=== PATIENT | female | born 1970 | race Caucasian/White ===

== ENCOUNTER 2021-05-31 13:35 | Emergency (ER) | payer BC ==
[~2021-05-31] VITALS: Ht 152.4 cm; Wt 74.8 kg
[~2021-05-31 13:35] MED LIST: ACET1TAB25 PO; AMLO-258 PO; AMOX-429 PO; ONDA4TAB4 PO
[2021-05-31 13:37] VITALS: BP 144/75
[2021-05-31 14:44] VITALS: BP_SYST 138
[2021-05-31 14:45] VITALS: BP_SYST 139; BP_SYST 151; BP_DIAS 81; BP_DIAS 84
[2021-05-31 14:48] LABS: BASOPHILS % (AUTO) 1.1 % (0.0-5.0); EOSINOPHILS % (AUTO) 1.2 % (0.0-8.0); HEMATOCRIT 35.5 % (36-48); LYMPHOCYTES % (AUTO) 33.6 % (21.0-51.0); MEAN CORPUSCULAR HEMOGLOBIN 30.6 pg (27.0-33.0); MEAN CORPUSCULAR HGB CONC 34.6 g/dL (32.0-36.0); MEAN CORPUSCULAR VOLUME 88.3 fL (79-99); MONOCYTES % (AUTO) 5.5 % (3.0-13.0); NEUTROPHILS % (AUTO) 58.3 % (40.0-77.0); PLATELET COUNT (AUTO) 288 K/uL (130-400); RED BLOOD CELL COUNT(AUTO) 4.02 MIL/uL (4.00-5.50); RED CELL DISTRIBUTION WIDTH 11.9 % (11.0-15.5); WHITE BLOOD COUNT (AUTO) 7.4 K/uL (4.8-10.8)
[2021-05-31 15:00] VITALS: BP 118/72
[2021-05-31 15:01] LABS: CREATININE 0.7 mg/dL (0.5-1.5); POTASSIUM 3.7 mmol/L (3.5-5.1)
[2021-05-31 15:02] LABS: PROTHROMBIN TIME 10.9 SEC (9.6-11.6)
[2021-05-31 15:03] LABS: PARTIAL THROMBOPLASTIN TIME 25.1 SEC (26.3-35.5)
[2021-05-31 15:05] LABS: ALBUMIN 3.7 g/dL (3.5-5.0); BILIRUBIN,TOTAL 0.3 mg/dL (0.2-1.0); TOTAL PROTEIN, SERUM 7.7 g/dL (6.0-8.3)
[2021-05-31 15:18] LABS: APPEARANCE,URINE Clear (CLEAR); BILIRUBIN,URINE Negative (NEGATIVE); GLUCOSE, URINE (UA) Negative (NEGATIVE); KETONES,URINE Negative (NEGATIVE); LEUKOCYTE ESTERASE ,URINE Trace (NEGATIVE); NITRATE,URINE Negative (NEGATIVE); OCCULT BLOOD,URINE Large (NEGATIVE); PROTEIN,URINE Negative (NEGATIVE); UROBILINOGEN,URINE 0.2 mg/dL (0.2-1.0)
[2021-05-31 15:19] LABS: COLOR,URINE Pink (YELLOW)
[2021-05-31 15:20] LABS: HCG,QUAL RESULT NEGATIVE (NEGATIVE)
[2021-05-31 15:30] LABS: BACTERIA,URINE Rare /HPF (None Seen); MUCUS,URINE Few LPF (None Seen); SQUAMOUS EPITHELIAL CELL,UR 0-2 /HPF (0-2)
[2021-05-31 16:02] VITALS: BP 128/76
== END 2021-05-31 16:07 | disposition home or self-care (01) ==
LOC: EDH 13:35
DX: N93.8 Other specified abnormal uterine and vaginal bleeding (principal); I10 Essential (primary) hypertension; Z79.899 Other long term (current) drug therapy
CPT/HCPCS: 36415; 80053; 81001; 81025; 84703; 85025; 85610; 85730

== ENCOUNTER 2023-06-29 16:21 | Emergency (ER) | payer BC ==
[~2023-06-29] VITALS: Ht 152.4 cm; Wt 79.4 kg
[~2023-06-29 16:21] MED LIST changes: +ACET-2079 PO; -ACET1TAB25 PO
[2023-06-29] MEDS ORDERED: KETOROLAC 30MG VIAL (30MG/ML) IM ONE (17:30)
[2023-06-29 17:52] LABS: HCG,QUALITATIVE URINE NEGATIVE (NEGATIVE)
[2023-06-29 17:58] LABS: APPEARANCE,URINE CLEAR (CLEAR); BILIRUBIN,URINE NEGATIVE (NEGATIVE); COLOR,URINE LIGHT-YELLOW (YELLOW); GLUCOSE, URINE (UA) NEGATIVE (NEGATIVE); KETONES,URINE NEGATIVE (NEGATIVE); LEUKOCYTE ESTERASE ,URINE NEGATIVE Leu/uL (NEGATIVE); NITRATE,URINE NEGATIVE (NEGATIVE); OCCULT BLOOD,URINE NEGATIVE (NEGATIVE); PROTEIN,URINE 20 mg/dL (NEGATIVE); UROBILINOGEN,URINE 0.2 mg/dL (0.2-1.0)
[2023-06-29 18:05] LABS: ADD UA MICROSCOPIC YES
[2023-06-29 18:12] LABS: BACTERIA,URINE RARE /HPF (None Seen); MUCUS,URINE RARE LPF (None Seen); NON-SQUAMOUS EPITHELIAL CELL <1 /HPF (0-2); SQUAMOUS EPITHELIAL CELL,UR MOD /HPF (0-2)
[2023-06-29] MEDS ORDERED: KETOROLAC 60 MG VIAL (30MG/ML) IM ONE (18:50)
[2023-06-29] MEDS ORDERED: CYCL-309 PO (19:04)
[2023-06-29] MEDS ORDERED: NAPR-1180 PO (19:04)
[2023-06-29 19:16] VITALS: BP 143/72; PULSE 65; RESP 16; O2SAT 99
== END 2023-06-29 19:26 | disposition home or self-care (01) ==
LOC: EDH 16:21
DX: M54.41 Lumbago with sciatica, right side (principal); I10 Essential (primary) hypertension; Z90.49 Acquired absence of other specified parts of digestive tract
CPT/HCPCS: 99284; 81001; 81025; 96372; J1885